=== PATIENT | male | born 2005 | race Caucasian/White ===

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

== ENCOUNTER 2023-04-14 15:21 | Observation (INO) | payer OTHER, SELFPAY ==
--- NOTE | ~2023-04-14 | XR_ITS ---
XR abdomen/kub 1V 04/16/2023 08:59 Indication: Fecal impaction Procedure: KUB Comparison: Comparison to multiple prior studies sequentially, with oldest reviewed study dated 11/2021. Findings: Persistent fecal impaction of the distal colon and rectum, although improved compared with 04/15/2023 and 02/28/2022. No significant small bowel dilation. No abnormal calcifications. No acute o sseous abnormality. Impression: 1: Improved fecal impaction of the distal colon and rectum. Reviewed, dictated and finalized at location B. Impression: 1: Improved fecal impaction of the distal colon and rectum.
--- NOTE | ~2023-04-14 | XR_ITS ---
Supine and upright views of the abdomen Clinical history: Fecal impaction Findings: Large amount of stool present the rectum/distal sigmoid colon. No evidence for obstruction or free air. No abnormal mass lesion or calcification is seen. Osseous structures are intact. Impression: Very large amount of stool at the rectum/distal sigmoid colon, similar to prior exam. Findings are co nsistent with fecal impaction. Reviewed, dictated and finalized at location . Impression: Very large amount of stool at the rectum/distal sigmoid colon, similar to prior exam. Findings are consistent with fecal impaction.
--- NOTE | ~2023-04-14 | XR_ITS ---
XR abdomen/kub 1V 04/15/2023 10:20 INDICATION: Fecal impaction TECHNIQUE: KUB COMPARISON: 02/28/2022 FINDINGS: Bowel gas pattern is normal. There is fecal impaction of the left colon and rectum. There i s no evidence of free air, mass, organomegaly, ascites or obstruction. No abnormal calculi are seen. The bones appear intact. IMPRESSION: 1: Fecal impaction of the left colon and rectum.. Reviewed, dictated and finalized at location A.
--- NOTE | ~2023-04-14 | CT_ITS ---
EXAMINATION: CT abdomen pelvis w con DATE: 04/14/2023 17:09 INDICATION: abdominal pain, constipation TECHNIQUE: Computed tomography (CT) of the abdomen and pelvis was performed with 100 mL Omnipaque-350 intravenous contrast. Automated exposure control and iterative reconstruction technique were employe d. The dose-length product was 249.93 mGy-cm. COMPARISON: 02/28/2022. FINDINGS: Lower thorax: Unremarkable Liver: Normal. Biliary/Gallbladder: Gallbladder is normal. No bile duct dilation. Pancreas: No mass or duct dilation. Spleen: Normal. Adrenals:No mass. Kidneys: No suspicious mass, obstructing stone, or hydronephrosis. GI tract: The descending colon and rectum are markedly dilated by formed stool, measuring up to 13 cm . There is associated wall thickening and mild pericolonic inflammatory change. No small bowel dilati on. Normal appendix. Mesentery/Peritoneum: No ascites, mass, or free air. Retroperitoneum: No mass. Pelvis: Pelvic organs are within normal limits. Rightward displacement of the urinary bladder by the distended colon and rectum. Soft Tissues: Soft tissues and body wall unremarkable. Bones: No acute osseous finding. IMPRESSION: Severe fecal impaction and massive volume of colonic stool, with findings concerning for early sterco ral colitis. Reviewed, dictated and finalized at location K. IMPRESSION: Severe fecal impaction and massive volume of colonic stool, with findings rajeev rning for early stercoral colitis.
[2023-04-14 15:22] VITALS: BP 136/92; PULSE 98; RESP 18; TEMP 36.1; O2SAT 100
--- NOTE | 2023-04-14 15:39 | ED.ABDPAIN ---
HPI - Abdominal Pain General Chief Complaint: Abdominal Pain Stated Complaint: abd pain/constipation Time Seen by Provider: 04/14/23 15:34 History of Present Illness HPI narrative: Patient is a 17-year-old male with history of constipation since childhood here with abdominal pain and constipation. He states that he has not had a good large bowel movement for about 2 weeks, last very small formed stool was approximately 1 week ago. He states he has tried a dose of MiraLax daily as well as Colace, 3 rectal suppositories, to home enemas without any improvement of symptoms. He notes he still passes flatulence but only a small amount. No prior abdominal surgeries. His last visit last year for similar he notes was much worse at that time. He was referred to GI but did not follow up. He Is supposed to be taking daily MiraLax but none recently has been quite busy and feeling well so he was not taking it daily he is supposed to. He does not he has had some decreased p.o. intake as well as decreased urinary output. He believes his last urination occurred yesterday. No fever or chills. Related Data Allergies Allergy/AdvReac Type Severity Reaction Status Date / Time No Known Allergies Allergy Verified 04/14/23 15:36 Review of Systems Review of Systems: All systems reviewed & are unremarkable except as noted in HPI and below Exam Narrative: GENERAL: Well-appearing, well-nourished, and in no acute distress. HEAD: Normocephalic, atraumatic. EYES: PERRLA and EOMI. ENT: Nares clear. Mucous membranes moist. NECK: Supple. CHEST: Clear to auscultation. No respiratory distress. HEART: Regular rate and rhythm. Normal peripheral pulses. ABDOMEN: Soft, Diffusely tender, no rebound or guarding. nondistended. EXTREMITIES: Normal range of motion. No edema. SKIN: Warm, dry, no rash. NEURO: No focal deficits. Alert and oriented x3. PSYCH: Normal mood and affect. Course Course Emergency Course: Chart review performed. Patient here with abdominal pain x2 weeks with constipation. Triage vitals normal. He was seen on 02/28/22 for constipation. Patient seen and evaluated, in no acute distress however does appear to be uncomfortable. Will do lab work, CT abdomen pelvis and anticipate he will likely require an enema here in the emergency department. Morphine and Zofran ordered for symptoms as well as IV fluids. He does have a ride home should he be discharged. CT shows severe fecal impaction and massive volume of colonic stool with findings concerning for early stercoral colitis. Will discuss case with general surgery drilling field professional. I did discuss the case with Dr. Caal, will do attempt at disimpaction and enema here in the ED. I discussed possible contrast enema with radiology, no radiologist in house right now. If needed this could be scheduled for the morning. Will do trial of soap suds, discussed with patient, he is agreeable. Disimpaction attempt with nurse at bedside, stool is so high up that I can hardly scrape it with the tip of my finger. Firm, unable to pull any stool out. Soap suds enema placed. Patient had no success with bowel movement after enema. Patient agreeable to admission. Golytely ordered. Barium enema xray ordered. Spoke with Dr. Dowell, accepts for admission. Vital Signs Vital signs: Vital Signs Temperature 97.0 F L 04/14/23 15:22 Pulse Rate 98 04/14/23 15:22 Respiratory Rate 18 04/14/23 15:22 Blood Pressure 136/92 H 04/14/23 15:22 Pulse Oximetry 100 04/14/23 15:22 Oxygen Delivery Room Air 04/14/23 15:22 Temperature 97.0 F L 04/14/23 15:22 Pulse Rate 98 04/14/23 15:22 Respiratory Rate 18 04/14/23 15:22 Blood Pressure 136/92 H 04/14/23 15:22 Pulse Oximetry 100 04/14/23 15:22 Oxygen Delivery Room Air 04/14/23 15:22 MDM - Abdominal Pain Lab Data 04/14/23 16:11 04/14/23 16:11 Labs: Lab Results 04/14/23 Range/Units 16:11 WBC 8.6
[2023-04-14 16:16] LABS: Basophils Percent Auto 0.5 % (0.2-1.2); Eosinophils Absolute Auto 0.1 K/mm3 (0-0.3); Eosinophils Percent Auto 0.6 % (0-4.4); Hematocrit 43.9 % (42.0-52.0); Immature Granulocyte Absolute 0.01 K/mm3 (0.00-0.031); Immature Granulocyte Percent A 0.1 % (0-0.5); Lymphocytes Absolute Auto 1.32 K/mm3 (0.9-3.2); Lymphocytes Percent Auto 15.3 % (18.3-44.2); Mean Corpuscular HGB Conc 34.2 g/dl (32-36); Mean Corpuscular Hemoglobin 30.5 pg (26-34); Mean Corpuscular Volume 89.2 fl (80-100); Mean Platelet Volume 9.9 fl (7.4-10.4); Monocytes Absolute Auto 0.6 K/mm3 (0.1-0.6); Monocytes Percent Auto 7.1 % (2.6-8.5); Neutrophils Absolute Auto 6.6 K/mm3 (1.3-6.7); Neutrophils Percent Auto 76.4 % (45.5-73.1); Platelet Count Result 320 k/mm3 (150-375); Red Blood Count 4.92 M/mm3 (4.6-6.20); Red Cell Distribution Width 12.3 % (11.5-14.5); White Blood Count 8.6 K/mm3 (4.5-10.0)
[2023-04-14 16:26] LABS: Alanine Aminotransferase 16 U/L (6-50); Albumin Level 5.2 g/dL (3.7-5.6); Alkaline Phosphatase 79 U/L (58-237); Anion Gap 11 mmol/L (8-16); Aspartate Amino Transferase 25 U/L (17-59); Bilirubin,Total 1.2 mg/dL (0.2-1.3); Blood Urea Nitrogen 10 mg/dL (8-21); Calcium 9.9 mg/dL (8.9-10.7); Carbon Dioxide 24 mmol/L (22-30); Chloride 105 mmol/L (98-107); Estimated CRCL calculation 118 ml/min; Estimated Glomerular Filt Rate > 60; Glucose 93 mg/dL (65-110); Lactic Acid Reflex 1.3 mmol/L (0.7-2.0); Lipase 79 U/L (23-300); Potassium 3.7 mmol/L (3.4-5.0); Sodium 140 mmol/L (134-143)
[2023-04-14] MEDS: SODIUM CHLORIDE 0.9% IV 1,000 ML 999 ML IV CONT (16:29)
[2023-04-14] MEDS: MORPHINE SULFATE (*CRX) 4 MG/ML INJ IV PUSH (16:30)
[2023-04-14] MEDS: ONDANSETRON INJ 4 MG/2 ML VIAL IV PUSH (16:30)
--- NOTE | 2023-04-14 20:54 | PM.IMHP ---
H&P: HPI History of Present Illness Date/Time: 04/14/23 20:54 Chief Complaint: constipation Narrative: This is a 17 year old With a past history of constipation. The patient stated that he is supposed to take a daily stool softener but does not. The patient does not have a regular bowel regimen. He stated that he has not had a normal bowel movement in 2 weeks. last very small formed stool was approximately 1 week ago.? He states he has tried a dose of MiraLax daily as well as Colace, 3 rectal suppositories, to home enemas without any improvement of symptoms.? He notes he still passes flatulence but only a small amount.? No prior abdominal surgeries.? His last visit last year for similar he notes was much worse at that time. He was referred to GI but did not follow up. He ? Is supposed to be taking daily MiraLax but none recently has been quite busy and feeling well so he was not taking it daily he is supposed to.? He does not he has had some decreased p.o. intake as well as decreased urinary output.? He believes his last urination occurred yesterday. No fever or chills. He also stated that he had this similar problem when he was 12. He stated that he had a barium enemia at that time. This did resolve that issue at that time. GI has been consulted. patient was given IV fluids morphine ,Zofran ,and soapsuds enema in the emergency room. The patient still has not had a bowel movement. CT of the pelvis and abdomen. Severe fecal impaction and massive volume of colonic stool, with findings concerning for early stercoral colitis. Patient is being admitted to observation status on the date of service of 04/14/2023 Review of Systems Review of Systems: All systems reviewed & are unremarkable except as noted in HPI and below Constitutional: Constitutional: Reports as per HPI and Reports no additional constitutional complaints Eyes: Eyes: Reports as per HPI and Reports no additional eye complaints ENT: Reports system reviewed and no additional complaints, except as documented and Reports Normal hearing present Cardiovascular: Cardiovascular: Reports no additional cardiovascular complaints Respiratory: Respiratory: Reports no additional respiratory complaints and Reports no additional respiratory complaints Gastrointestinal: Gastrointestinal: Reports as per HPI Musculoskeletal: Musculoskeletal: Reports no additional musculoskeletal complaints Integumentary/Breasts: Skin/Breast: Reports system reviewed and no additional complaints, except as docu and Reports as per HPI Neurologic: Reports system reviewed and no additional complaints, except as documented, Reports as per HPI and Reports Normal hearing present Psychiatric: Psychiatric: Reports no additional psychiatric complaints and Reports as per HPI Endocrine: Endocrine: Reports no additional endocrine complaints Hematologic/Lymphatic: Hematologic/Lymphatic: Reports no additional hematologic/lymphatic complaints Allergic/Immunologic: Allergic/Immunologic: Reports no additional allergic/immunologic complaints PMFSH Surgical History Surgical History No history of previous surgery Family History Family History Sibling Bipolar 1 disorder Social History Social History (Updated 04/14/23 @ 23:30 by Whit Rivera NP) Social History: He is single lives with parents and works at [employer]. he vapes daily and uses marijuana. Smoking status: Current every day smoker Tobacco type: e-cigarettes/vaping Alcohol intake: never Substance use: current Substance use type: marijuana Other substance usage details: weekly Lack of Transportation: No Lack of Food: Never True Current Housing: I Have Housing Concerned About Future Housing: No Difficulty Paying Gas/Electric Bills: No Difficulty Paying for Meds: No Currently Unemployed: No Education:
[2023-04-14 21:19] VITALS: BP 124/83; PULSE 101; RESP 16; O2SAT 98
[2023-04-14] MEDS: PEG (High)/E-LYTE SOLN 4,000 ML BTL 4000 ML PO (21:38)
--- NOTE | 2023-04-14 22:17 | ADMGEN ---
This patient, Jabier Sharma, was admitted to 2 Medical Room 249-01. Patient/family oriented to hospital policies and general routines including ID bracelet, bed and alarms, visiting hours, pain management, procedures, bathroom and other care routines, personal items, smoking policy, room service/diet, and visiting hours. Information on how to activate the Rapid Response Team has been discussed. Patient/Family are encouraged to report perceived risks to care and to ask questions if they do not understand what they are told or what they should do.
[2023-04-14 22:34] VITALS: BMI 21.4
[2023-04-14 22:37] VITALS: BP 132/82; PULSE 90; RESP 16; TEMP 36.6; O2SAT 99
[2023-04-14] MEDS: LACTULOSE ENEMA 200 GM/1,000 ML ENEMA RECTAL (23:24)
[2023-04-14] MEDS: DOCUSATE SODIUM 100 MG CAPSULE PO (23:24)
[2023-04-14] MEDS: polyethylene glycoL 3350 238 GM BOTTLE PO (23:45)
[2023-04-15] MEDS: SODIUM CHLORIDE 0.9% IV 1,000 ML 100 ML IV CONT ×2 (03:12→17:39)
[2023-04-15 05:29] LABS: Basophils Percent Auto 0.6 % (0.2-1.2); Eosinophils Absolute Auto 0.1 K/mm3 (0-0.3); Eosinophils Percent Auto 1.4 % (0-4.4); Hemoglobin 13.4 g/dL (14.0-18.0); Immature Granulocyte Absolute 0.02 K/mm3 (0.00-0.031); Immature Granulocyte Percent A 0.3 % (0-0.5); Lymphocytes Percent Auto 27.6 % (18.3-44.2); Mean Corpuscular HGB Conc 32.7 g/dl (32-36); Mean Corpuscular Hemoglobin 30.2 pg (26-34); Mean Corpuscular Volume 92.3 fl (80-100); Mean Platelet Volume 10.1 fl (7.4-10.4); Monocytes Absolute Auto 0.7 K/mm3 (0.1-0.6); Monocytes Percent Auto 10.1 % (2.6-8.5); Neutrophils Absolute Auto 3.9 K/mm3 (1.3-6.7); Platelet Count Result 301 k/mm3 (150-375); Red Blood Count 4.44 M/mm3 (4.6-6.20); Red Cell Distribution Width 12.2 % (11.5-14.5); White Blood Count 6.5 K/mm3 (4.5-10.0)
[2023-04-15 05:38] VITALS: BP 120/73; PULSE 87; RESP 16; TEMP 36.6; O2SAT 98
[2023-04-15 05:46] LABS: Lactic Acid Reflex 0.6 mmol/L (0.7-2.0)
[2023-04-15 05:47] LABS: Alanine Aminotransferase 12 U/L (6-50); Albumin Level 4.6 g/dL (3.7-5.6); Alkaline Phosphatase 69 U/L (58-237); Anion Gap 11 mmol/L (8-16); Aspartate Amino Transferase 22 U/L (17-59); Bilirubin,Total 1.1 mg/dL (0.2-1.3); Blood Urea Nitrogen 8 mg/dL (8-21); Calcium 9.2 mg/dL (8.9-10.7); Carbon Dioxide 24 mmol/L (22-30); Chloride 103 mmol/L (98-107); Estimated CRCL calculation 124 ml/min; Estimated Glomerular Filt Rate > 60; Glucose 89 mg/dL (65-110); Potassium 3.8 mmol/L (3.4-5.0); Sodium 138 mmol/L (134-143)
--- NOTE | 2023-04-15 08:18 | PM.IMPN ---
Progress Note: A&P Assessment and Plan (1) Fecal impaction in rectum: Code(s): K56.41 - Fecal impaction Status: Acute Assessment and Plan: 04/14/23:(copied from chart) GI has been consulted. The patient had a soapsuds enema without any relief in the emergency room. See CT scan of the abdomen and pelvis.Severe fecal impaction and massive volume of colonic stool, with findings concerning for early stercoral colitis. MiraLax has been ordered as well as lactulose enema. Daily Colace. GoLYTELY has been ordered. 04/15/23: GI continues to follow patient KUB today showing fecal impaction of the left colon and rectum patient will get Mag citrate and soapsuds enema today, will start Dulcolax tomorrow repeat KUB in the morning patient reports a few bowel movements today, he is passing gas, pain is well controlled (2) Urinary retention: Code(s): R33.9 - Retention of urine, unspecified Status: Acute Assessment and Plan: 04/15/2023: patient called out today unable to urinate. Bladder scan shown greater than 700 mls in his bladder, order for a straight cath placed, patient had a 1000 male are greater out his bladder on straight cath. If he continues to have urinary retention Through today and tonight there, I placed an order to place Sullivan catheter. Currently patient does not want a catheter so we will monitor for this closely. Time Spent With Patient Time with patient: Greater than 35 minutes Subjective Date/time seen: 04/15/23 08:18 Interval history: 04/15/23: Interval history: This is a 17-year-old male who presented to the emergency room on 04/14/2023 with complaints of constipation. He stated at that time he has not had a bowel movement in 2 weeks. he tried multiple doses of MiraLax, Colace, suppositories, and enemas at home with no improvement in his symptoms. He has had no prior abdominal surgeries, however reports history of constipation. Workup in the hospital included a CT of the abdomen pelvis with contrast which showed severe fecal impaction and massive volume of colonic stool, with findings concerning for early stercoral colitis. GI was consulted. On examination today patient alert and oriented x4 sitting in bed hunched over almost in a guarding position. Vial signs have been stable, patient has been afebrile, he is currently on room air. his only complaint currently is that he unable to pee. A bladder scan was ordered which noted 700 ml of urine in his bladder and he is rather uncomfortable with that. Order placed for a straight cath with the results of over a 1000 mL out of his bladder. Patient hesitant about having a Sullivan catheter however he continues to retain I will have a standing order ready for placement of a Sullivan catheter. Labs today revealed a white blood cell count of 6.5, hemoglobin 13.4, hematocrit 41.0, sodium 138, potassium 3.9, Mag 2.0, BUN 8, creatinine 0.7, TSH 1.390, lactic acid 0.6, liver enzymes were normal, blood sugars ranging 89-93. GI seen the patient today and ordered a KUB which revealed fecal impaction of the left colon and rectum. He was ordered Mag citrate and a soapsuds enema. He will be started on Ducolax tomorrow and have another KUB. Patient has been having frequent bowel movements since the start of his medication. We will reassess tomorrow. Review of Systems Review of Systems: All systems reviewed & are unremarkable except as noted in HPI and below Constitutional: Constitutional: Reports as per HPI and Reports no additional constitutional complaints Eyes: Eyes: Reports as per HPI and Reports no additional eye complaints ENT: Reports system reviewed and no additional complaints, except as documented and Reports as per HPI Cardiovascular: Cardiovascular: Reports as per HPI and Reports no additional cardiovascular complaints Respiratory: Respiratory: Reports as per HPI and Reports no additional respiratory complaints Gastroint
--- NOTE | 2023-04-15 09:38 | WPDGICN ---
Assessment and Plan Assessment and plan (1) Fecal impaction in rectum: Code(s): K56.41 - Fecal impaction Status: Acute Assessment and Plan: Patient with apparent fecal impaction. Plan for soapsuds intervals at intervals until he is cleansed. Agree with MiraLax daily. We will give him do a lax as well for the Stimulan action. Suggest routine therapy with laxative such as MiraLax after discharge. Lower GI enema was ordered by primary care service. This been changed to a Gastrografin water-soluble enema that can be accomplished tomorrow if necessary. Perhaps an outpatient colonoscopy may be necessary after discharge. I suspect this is idiopathic in nature but further evaluation with elective colonoscopy may be prudent. Compliance with medications strongly encouraged to the patient at this time. (2) Constipation: Code(s): K59.00 - Constipation, unspecified Status: Acute Assessment and Plan: Patient appears to have chronic constipation. Suspect this is chronic idiopathic constipation , lab results reviewed today to appear unremarkable. GI Consult Note Consult date/time: 04/15/23 09:38 Reason for consult: Constipation and fecal impaction HPI: Jabier Sharma is a 17 year old male I am asked to see at the request of the hospitalist service because of fecal impaction and constipation. Patient gives a history of lifelong constipation. Typically he was advised to take MiraLax 17g p.o. daily. However he reports he has not taken this for more than a month. ?? because he forgets?. Patient states he began to become some uncomfortable yesterday. He went to the emergency room. CT scan imaging reveals a large amount of stool in the colon a question of stercoral colitis and he was admitted to the hospital. Overnight he was given enema and GoLYTELY. He has produced some stool this morning. He does not feel complete evacuation as of yet. Patient denies any bleeding or weight loss. Patient was advised follow-up with GI service but is not yet done so as an outpatient. Family history is noncontributory. Review of Systems Review of Systems: Review of systems noncontributory. [facility] Surgical History Surgical History No history of previous surgery Family History Family History Sibling Bipolar 1 disorder Social History Social History (Updated 04/14/23 @ 23:30 by Whit Rivera NP) Social History: He is single lives with parents and works at [email or web address]. he vapes daily and uses marijuana. Smoking status: Current every day smoker Tobacco type: e-cigarettes/vaping Alcohol intake: never Substance use: current Substance use type: marijuana Other substance usage details: weekly Lack of Transportation: No Lack of Food: Never True Current Housing: I Have Housing Concerned About Future Housing: No Difficulty Paying Gas/Electric Bills: No Difficulty Paying for Meds: No Currently Unemployed: No Education: High School Diploma/GED Difficulty w/ Childcare or Family Care: No Spiritual care concerns: No Meds Home Medications and Allergies Home Medications Medication Instructions Recorded Confirmed Type No Home Medications 04/14/23 04/14/23 History Allergies Allergy/AdvReac Type Severity Reaction Status Date / Time No Known Allergies Allergy Verified 04/14/23 15:36 Vital Signs Vital Signs - 24 hr 04/14/23 15:22 04/14/23 21:19 04/14/23 22:37 Temperature 97.0 F L 97.9 F Pulse Rate 98 101 H 90 Respiratory Rate 18 16 16 Blood Pressure 136/92 H 124/83 132/82 Pulse Oximetry 100 98 99 Oxygen Delivery Room Air 04/15/23 05:38 Temperature 97.8 F Pulse Rate 87 Respiratory Rate 16 Blood Pressure 120/73 Pulse Oximetry 98 Oxygen Delivery Exam Narrative: Physical exam reveals patient to be alert. Vital signs sta
[2023-04-15] MEDS: MAGNESIUM CITRATE 300 ML BTL PO (10:33)
[2023-04-15] MEDS: DOCUSATE SODIUM 100 MG CAPSULE PO ×2 (10:34→20:24)
[2023-04-15 14:35] VITALS: BP 139/94; PULSE 111; RESP 20; TEMP 36.5; O2SAT 100
[2023-04-15 17:33] LABS: Appearance Urine Clear (Clear); Bilirubin Urine Negative (Negative); Blood Urine Negative (Negative); Color Urine Yellow (Yellow); Glucose Urine UA Negative (Negative); Ketones Urine 1+ mg/dL (Negative); Leukocyte Esterase Ur Negative LEU/UL (Negative); Nitrate Urine Negative (Negative); Protein Urine Negative (Negative); Specific Grav Ur 1.013 (1.001-1.035); pH Urine 8.5 (5.0-9.0)
[2023-04-15 17:37] LABS: Add Urine Microscopic? NO
[2023-04-15] MEDS: KETOROLAC 15 MG/ML VIAL (*BKC) IV PUSH (18:59)
[2023-04-15 19:49] VITALS: BP 119/72; PULSE 94; RESP 18; TEMP 36.8; O2SAT 99
[2023-04-16] MEDS: SODIUM CHLORIDE 0.9% IV 1,000 ML 100 ML IV CONT (03:40)
[2023-04-16 05:27] LABS: Hemoglobin 13.5 g/dL (14.0-18.0); Mean Corpuscular HGB Conc 32.1 g/dl (32-36); Mean Corpuscular Hemoglobin 30.1 pg (26-34); Mean Corpuscular Volume 93.8 fl (80-100); Mean Platelet Volume 9.8 fl (7.4-10.4); Platelet Count Result 284 k/mm3 (150-375); Red Blood Count 4.48 M/mm3 (4.6-6.20); Red Cell Distribution Width 12.2 % (11.5-14.5); White Blood Count 4.8 K/mm3 (4.5-10.0)
[2023-04-16 06:00] VITALS: BP 109/60; PULSE 148; RESP 18; TEMP 36.4; O2SAT 100
[2023-04-16] MEDS: BISACODYL 5 MG TABLET EC PO (08:59)
[2023-04-16] MEDS: DOCUSATE SODIUM 100 MG CAPSULE PO ×2 (08:59→20:54)
[2023-04-16 09:00] VITALS: RESP 18; O2SAT 100
[2023-04-16 09:24] VITALS: BP 115/69; PULSE 62; RESP 18; O2SAT 100
--- NOTE | 2023-04-16 09:59 | PM.IMPN ---
Progress Note: A&P Assessment and Plan (1) Fecal impaction in rectum: Code(s): K56.41 - Fecal impaction Status: Acute Assessment and Plan: 04/14/23:(copied from chart) GI has been consulted. The patient had a soapsuds enema without any relief in the emergency room. See CT scan of the abdomen and pelvis.Severe fecal impaction and massive volume of colonic stool, with findings concerning for early stercoral colitis. MiraLax has been ordered as well as lactulose enema. Daily Colace. GoLYTELY has been ordered. 04/15/23: GI continues to follow patient KUB today showing fecal impaction of the left colon and rectum patient will get Mag citrate and soapsuds enema today, will start Dulcolax tomorrow repeat KUB in the morning patient reports a few bowel movements today, he is passing gas, pain is well controlled 04/16/23: GI following patient, will await further recommendations KUB today shown improved fecal impaction of the distal colon and rectum Continue with bowel regimen Patient has had some bowel movements today Patient still has poor intake of oral fluids and food, he has only been taking and clears today. I will leave it up to GI team if we can go ahead and advance his diet today. Endorses 1 episode of nausea and vomiting this morning, he describes it as bilious, he did not require any medication and is feeling better at this point. Encouraged ambulation (2) Urinary retention: Code(s): R33.9 - Retention of urine, unspecified Status: Acute Assessment and Plan: 04/15/2023: patient called out today unable to urinate. Bladder scan shown greater than 700 mls in his bladder, order for a straight cath placed, patient had a 1000 male are greater out his bladder on straight cath. If he continues to have urinary retention Through today and tonight there, I placed an order to place Sullivan catheter. Currently patient does not want a catheter so we will monitor for this closely. 04/16/23: Patient able to void without difficulty. They did not need to put in a Sullivan catheter in overnight. Resolved Time Spent With Patient Time with patient: 25 - 35 minutes Subjective Date/time seen: 04/16/23 09:59 Interval history: 04/15/23: Interval history: This is a 17-year-old male who presented to the emergency room on 04/14/2023 with complaints of constipation. He stated at that time he has not had a bowel movement in 2 weeks. he tried multiple doses of MiraLax, Colace, suppositories, and enemas at home with no improvement in his symptoms. He has had no prior abdominal surgeries, however reports history of constipation. Workup in the hospital included a CT of the abdomen pelvis with contrast which showed severe fecal impaction and massive volume of colonic stool, with findings concerning for early stercoral colitis. GI was consulted. On examination today patient alert and oriented x4 sitting in bed hunched over almost in a guarding position. Vial signs have been stable, patient has been afebrile, he is currently on room air. his only complaint currently is that he unable to pee. A bladder scan was ordered which noted 700 ml of urine in his bladder and he is rather uncomfortable with that. Order placed for a straight cath with the results of over a 1000 mL out of his bladder. Patient hesitant about having a Sullivan catheter however he continues to retain I will have a standing order ready for placement of a Sullivan catheter. Labs today revealed a white blood cell count of 6.5, hemoglobin 13.4, hematocrit 41.0, sodium 138, potassium 3.9, Mag 2.0, BUN 8, creatinine 0.7, TSH 1.390, lactic acid 0.6, liver enzymes were normal, blood sugars ranging 89-93. GI seen the patient today and ordered a KUB which revealed fecal impaction of the left colon and rectum. He was ordered Mag citrate and a soapsuds enema. He will be started on Ducolax tomorrow and have another KUB. Patient has been having fr
--- NOTE | 2023-04-16 12:46 | WPDGIPROGNO ---
Progress Note: A&P Assessment and Plan (1) Constipation: Code(s): K59.00 - Constipation, unspecified Status: Acute Assessment and Plan: Patient with chronic constipation. He appears to have become impacted when he discontinued his daily use of MiraLax. Suggest restarting MiraLax on a daily basis. Because of x-ray today showing residual stool suggested bottle of magnesium citrate. Increase activity. He may benefit from high-fiber diet. May be beneficial to consider elective outpatient colonoscopy at a later date. (2) Fecal impaction in rectum: Code(s): K56.41 - Fecal impaction Status: Acute Assessment and Plan: Impaction appears resolved by history. Obstructive series suggest there may be some residual stool. Agree with a bottle of magnesium citrate and implementing daily use of MiraLax. Discharge when okay with primary care service. Subjective Date/time seen: 04/16/23 12:46 Interval history: Patient alert comfortable this morning. Had large bowel movement. Feels much relieved. Abdomen soft nontender. Patient denies abdominal pain. Tolerating liquid diet without difficulty. Review of Systems Review of Systems: Review of systems noncontributory. Exam Narrative: Physical exam reveals patient to be alert. Vital signs stable. HEENT exam reveals no icterus. Lungs are clear. Heart without murmur. Abdomen bowel sounds are present soft nontender with no organomegaly. Objective Data Vital Signs Vital Signs: Vital Signs - 24 hr 04/15/23 14:35 04/15/23 19:49 04/15/23 20:00 Temperature 97.7 F 98.3 F Pulse Rate 111 H 94 Respiratory Rate 20 18 Blood Pressure 139/94 H 119/72 Pulse Oximetry 100 99 Oxygen Delivery Room Air 04/16/23 06:00 04/16/23 09:00 04/16/23 09:24 Temperature 97.5 F L Pulse Rate 148 H 62 Respiratory Rate 18 18 18 Blood Pressure 109/60 115/69 Pulse Oximetry 100 100 100 Oxygen Delivery Room Air Intake/Output Intake/Output: Intake & Output 04/13/23 04/14/23 04/15/23 04/16/23 23:59 23:59 23:59 23:59 Intake Total 1000 1240 1766 Output Total 1400 Balance 1000 -160 1766 Meds/Results Medications: Active Medications Generic Name Dose Route Start Last Admin Trade Name Freq PRN Reason Stop Dose Admin Acetaminophen 650 mg 10/22/23 18:49 Acetaminophen 325 Mg Tablet PO Q4H PRN Mild Pain (1-3) or Fever Bisacodyl 5 mg 04/16/23 09:00 04/16/23 08:59 Bisacodyl 5 Mg Tablet Ec PO 5 mg QAM [facility] Administration Docusate Sodium 100 mg 04/14/23 22:40 04/16/23 08:59 Docusate Sodium 100 Mg Capsule PO 100 mg Q12HR [facility] Administration Ketorolac Tromethamine 15 mg 04/15/23 18:47 04/15/23 18:59 Ketorolac 15 Mg/Ml Vial (*Bkc) IV PUSH 15 mg Q6H PRN Administration Pain Ondansetron HCl 4 mg 04/14/23 23:44 Ondansetron Inj 4 Mg/2 Ml Vial IV PUSH Q4H PRN Nausea And Vomiting Polyethylene Glycol 17 gm 04/17/23 09:00 Polyethylene Glycol 3350 17 Gm Powd.[facility] Results: ITS Impressions Abdomen/Pelvis CT 04/14/23 17:09 IMPRESSION: Severe fecal impaction and massive volume of colonic stool, with findings concerning for early stercoral colitis. Abdomen X-Ray 04/16/23 09:07 Impression: 1: Improved fecal impaction of the distal colon and rectum. Labs Labs: Laboratory Results - last 24 hr 04/15/23 04/16/23 17:04 05:14 WBC 4.8 RBC 4.48 L Hgb 13.5 L Hct 42.0 MCV 93.8 MCH 30.1 MCHC 32.1 RDW 12.2 Plt Count 284 MPV 9.8 Urine Color Yellow Urine Appearance Clear Urine pH 8.5 Ur Specific Winfred 1.013 Urine Protein Negative Urine Glucose (UA) Negative Urine Ketones 1+ H Ur Blood (Man) Negative Urine Nitrate Negative Urine Bilirubin Negative Urine Urobilinogen 1.0 Leukocyte Esterase Rfl Negative Amg Follow-up Billing Hospital [facility]up [facility]
[2023-04-16 14:46] VITALS: BP 115/65; PULSE 84; RESP 18; TEMP 36.7; O2SAT 99
[2023-04-16 17:08] LABS: Anion Gap 13 mmol/L (8-16); Blood Urea Nitrogen 6 mg/dL (8-21); Calcium 9.6 mg/dL (8.9-10.7); Carbon Dioxide 22 mmol/L (22-30); Chloride 105 mmol/L (98-107); Estimated CRCL calculation 143 ml/min; Estimated Glomerular Filt Rate > 60; Glucose 90 mg/dL (65-110); Sodium 140 mmol/L (134-143)
[2023-04-16] MEDS: MAGNESIUM CITRATE 300 ML BTL PO (17:33)
[2023-04-16 19:42] VITALS: BP 114/72; PULSE 70; RESP 16; TEMP 36.6; O2SAT 99
[2023-04-17 06:56] VITALS: BP 106/66; PULSE 60; RESP 14; TEMP 36.6; O2SAT 98
[2023-04-17 08:24] VITALS: RESP 16; O2SAT 98
[2023-04-17] MEDS: DOCUSATE SODIUM 100 MG CAPSULE PO (08:29)
[2023-04-17] MEDS: polyethylene glycoL 3350 17 GM POWD.PACK PO (08:29)
[2023-04-17] MEDS: BISACODYL 5 MG TABLET EC PO (08:29)
--- NOTE | 2023-04-17 08:41 | PM.DS ---
DS: Admitting Diagnosis Discharge Date 04/17/23 Admitting Diagnosis Acute fecal impaction in rectum DS: Discharge Diagnosis Discharge Diagnosis (1) Fecal impaction in rectum: Code(s): K56.41 - Fecal impaction Status: Acute DS: Summary Hospital Course Reason for hospitalization: Acute fecal impaction in rectum Hospital Course: This is a 17 year old male who presented to the hospital with Complains of constipation on 04/14/2023. He states at that time that he had not had a bowel movement in 2 weeks. He tried multiple doses of MiraLax, Colace, suppositories, and enemas at home with no improvement in his symptoms. Hospital work up included a CT of the abdomen pelvis with contrast which showed severe fecal impaction and massive volume of colonic stool, with findings concerning for early stercoral colitis. GI was consulted And recommended a KUB which revealed fecal impaction of the left colon and rectum. He was given a dose of Mag citrate and a soapsuds enema. He has had multiple bowel movements the last few days. His repeat KUB showed some improvement however there was still quite a bit of stool burden. Spoke with Dr. Bhagat today about today's KUB showing quite a bit of stool burden. He recommends to have him still discharge to home, continue his MiraLax daily, continue taking Colace, and take another dose of Mag citrate on or Sunday of this week. he can also repeat the Mag citrate next week after Sunday if he is still having symptoms. would like to follow-up with him on an outpatient basis in 2 weeks and may benefit from a colonoscopy considering the complications he has had with constipation. Patient also needs to follow up with the primary care physician he currently has a plateman. I told him it would be fine to follow-up with his plateman if she was still allow however he needs to find an adult physician going forward that can follow him. Labs today were essentially unremarkable. Discussed this plan with the patient and significant other and they are agreeable to this treatment plan. Patient stable for discharge. Status at Discharge Cognitive/behavioral status at discharge: Alert and oriented x4 Functional status at discharge: independent ambulation Overall status at discharge: patient is back to baseline Time Spent with Patient Time attestation: Total time spent providing and/or coordinating discharge services: Time spent: Less than 30 minutes Exam Narrative: GENERAL: Ill-appearing, well-nourished HEAD: Normocephalic, atraumatic. EYES: PERRLA and EOMI. Sclera clear ENT: Mucous membranes moist. NECK: Supple. no JVD, trachea midline CHEST: lungs clear to auscultation, no adventitious lung sounds.? No respiratory distress. HEART: Regular rate and rhythm.? normal S1 and S2. No murmurs, gallops, friction rub. Normal peripheral pulses. ABDOMEN: soft, non- distended abdomen, no rebound or guarding. Reports multiple BM's today and passing gas. Hypoactive bowel sounds, he is passing gas. He is urinating without difficulty today. He did have 1 episode of nausea and vomiting today but this has subsided. EXTREMITIES: Normal range of motion.? No edema. SKIN: Warm, dry, no rash. NEURO: No focal deficits.? Alert and oriented x3. PSYCH: Normal mood and affect. ? DS: Data Data Completed and Pending Labs on day of discharge: Labs from last 24 hours 04/16/23 16:47 Sodium 140 Potassium 4.0 Chloride 105 Carbon Dioxide 22 Anion Gap 13 BUN 6 L Creatinine 0.60 L Estim Creat Clear Calc 143 Estimated GFR > 60 Glucose 90 Calcium 9.6 Procedures/Treatments: Aggressive bowel prep for fecal impaction Discharge Plan Discharge Attending physician on discharge: Beryl Gauthier Consulting providers: Dong Bhagat Discharging Clinician: Shantell Parry Anticipated Discharge Date/Time: 04/17/23 08:47 Patient Disposition: Home, Self-Care Activity:
[2023-04-17 14:07] VITALS: BP 121/76; PULSE 90; RESP 18; TEMP 36.3; O2SAT 100
== END 2023-04-17 17:05 | disposition home or self-care (01) ==
LOC: ANHED 20:37 → ANH2MED 21:32
PROVIDERS: Nurse Practitioner; Nurse Practitioner Acute Care; Admitting Provider Internal Medicine; Emergency Provider Student in an Organized Health Care Education/Training Program; PCP Pediatrics; Visit Provider Student in an Organized Health Care Education/Training Program
DX: K56.41 Fecal impaction (principal); R33.9 Retention of urine, unspecified; F17.290 Nicotine dependence, other tobacco product, uncomplicated; F12.90 Cannabis use, unspecified, uncomplicated; K62.6 Ulcer of anus and rectum; Z96.0 Presence of urogenital implants
CPT/HCPCS: 36415; 74018; 74177; 80048; 80053; 81003; 83605; 83690; 83735; 84443; 85025; 85027; 96360; 96361; 96374; 96375; 99285; A9270; G0378; J1885; J2270; J2405; J7030; Q9967

== ENCOUNTER 2023-05-02 05:31 | Emergency (ER) | payer OTHER, SELFPAY ==
[2023-05-02 05:34] VITALS: BP 140/93; PULSE 86; RESP 20; TEMP 36.4; O2SAT 100
[2023-05-02] MEDS: HYDROmorphone HCL INJ (*CRX) 1 MG/ML SYR 0.5 MG IM (06:10)
--- NOTE | 2023-05-02 06:10 | ED.GENADULT ---
HPI - General Adult General Chief complaint: Urogenital-Male Stated complaint: Urinary retention? Time Seen by Provider: 05/02/23 05:48 History of Present Illness HPI narrative: This is a 17-year-old male with history of constipation urinary retention presenting with 1 day of urinary retention. He has significant abdominal pain and has not been able urinate for 1 day. Patient states that when he becomes fecal impacted he has urinary retention. He has an appointment on May [address] Bhagat for possible colonoscopy assisted disimpaction. Related Data Allergies Allergy/AdvReac Type Severity Reaction Status Date / Time No Known Allergies Allergy Verified 04/14/23 15:36 [facility] Past Medical History Medical History Constipation Fecal impaction in rectum Urinary retention Surgical History Surgical History No history of previous surgery Family History Family History Sibling Bipolar 1 disorder Social History Social History Social History: He is single lives with parents and works at [employer]. he vapes daily and uses marijuana. Smoking status: Current every day smoker Tobacco type: e-cigarettes/vaping Alcohol intake: never Substance use: current Substance use type: marijuana Other substance usage details: weekly Lack of Transportation: No Lack of Food: Never True Current Housing: I Have Housing Concerned About Future Housing: No Difficulty Paying Gas/Electric Bills: No Difficulty Paying for Meds: No Currently Unemployed: No Education: High School Diploma/GED Difficulty w/ Childcare or Family Care: No Spiritual care concerns: No Exam Narrative: APPEARANCE: patient is very uncomfortable Head: atraumatic. EYES: EOMI, NOSE: Atraumatic NECK: Trachea midline RESPIRATORY: No increased rate of breathing CARDIOVASCULAR: RRR, ABDOMINAL: palpable mass in the suprapubic area, rest the abdomen is soft, nontender MUSCULOSKELETAl: No obvious deformities NEURO: Alert. Moving 4/4 extremities SKIN:: Warm, dry. Normal color PSYCHIATRIC: Normal affect Course Vital Signs Vital signs: Vital Signs Temperature 97.6 F 05/02/23 05:34 Pulse Rate 86 05/02/23 05:34 Respiratory Rate 20 05/02/23 05:34 Blood Pressure 140/93 H 05/02/23 05:34 Pulse Oximetry 100 05/02/23 05:34 Oxygen Delivery Room Air 05/02/23 05:34 Temperature 97.6 F 05/02/23 05:34 Pulse Rate 86 05/02/23 05:34 Respiratory Rate 20 05/02/23 05:34 Blood Pressure 140/93 H 05/02/23 05:34 Pulse Oximetry 100 05/02/23 05:34 Oxygen Delivery Room Air 05/02/23 05:34 Medical Decision Making MDM Narrative Medical decision making narrative: -Course: 17-year-old male with history of urinary retention and fecal impaction presenting with urinary retention. A coude catheter was used to drain his bladder with significant relief. On re-evaluation his abdomen is now soft nontender with no guarding or rebound. He declined a Sullivan with leg bag. He said the last time he had urine retention once they drained it the 1st time he was able to urinate without difficulty. He will return if he is unable to urinate. On re-evaluation his abdomen is now soft nontender with no guarding or rebound. The patient says he has not had a bowel movement in several days and he knows that he is impacted but he is still passing gas and having small bowel movements. No N/V. I asked if he wanted to be evaluated or treated for his fecal impaction while here in the emergency department in the declined as he would rather follow up with GI on May 09. -DDX includes but is not limited to: Urinary retention, fecal impaction, constipation -Co-morbidities complicating care: history of urinary ret
[2023-05-02 06:23] LABS: Appearance Urine Clear (Clear); Bilirubin Urine Negative (Negative); Blood Urine Negative (Negative); Color Urine Yellow (Yellow); Glucose Urine UA Negative (Negative); Ketones Urine Negative (Negative); Leukocyte Esterase Ur Negative LEU/UL (Negative); Nitrate Urine Negative (Negative); Protein Urine Negative (Negative); Specific Grav Ur 1.011 (1.001-1.035); Urobilinogen Urine 0.2 mg/dL (<2.0)
--- NOTE | 2023-05-02 06:42 | PC.NURSE ---
Sullivan catheter placed as straight cath. Bladder drained with 1160 ml output. Patient declined a leg bag and states he would like to go home and attempt to urinate on his own. Patient instructed to come back to the ED if unable to urinate at home.
[2023-05-02 06:56] LABS: Add Urine Microscopic? NO
== END 2023-05-02 06:54 | disposition home or self-care (01) ==
PROVIDERS: Emergency Provider Emergency Medicine; PCP Pediatrics
DX: R33.9 Retention of urine, unspecified (principal); K59.00 Constipation, unspecified; F17.290 Nicotine dependence, other tobacco product, uncomplicated
CPT/HCPCS: 81003; 96372; 99283; J1170

== ENCOUNTER 2023-05-02 16:44 | Observation (INO) | payer OTHER, SELFPAY ==
--- NOTE | ~2023-05-02 | XR_ITS ---
EXAMINATION: XR abdomen/kub 1V DATE: 05/02/2023 18:15 INDICATION: Constipation. TECHNIQUE: A supine view of the abdomen on 2 radiographs was obtained. COMPARISON: CT abdomen and pelvis 04/14/2023 FINDINGS: There is a large stool ball in the rectosigmoid with distention of the rectosigmoid. The sm all bowel is normal in caliber. A catheter overlies the bladder. IMPRESSION: 1. Large stool ball in the rectosigmoid with distention of the rectosigmoid. Reviewed, dictated and finalized at location E. EAR UNIT OPERATOR
--- NOTE | ~2023-05-02 | XR_ITS ---
EXAMINATION: XR abdomen/kub 1V INDICATION: Fecal impaction TECHNIQUE: Supine views of the abdomen were obtained on 2 radiographs. COMPARISON: 05/02/2023 FINDINGS: Again seen is a large stool ball of the rectum with persistent distention of the sigmoid co rashad. No free intraperitoneal gas is identified. A catheter overlying the pelvis has been removed. IMPRESSION: 1. Persistent fecal impaction of the rectum with moderate distention of the sigmoid colon. Reviewed, dictated and finalized at location B. AGE GRINDER OPERATOR IMPRESSION: 1. Persistent fecal impaction of the rectum with moderate distention of the sig moid colon.
[2023-05-02 16:48] VITALS: BP 136/86; PULSE 100; RESP 16; TEMP 36.6; O2SAT 100
--- NOTE | 2023-05-02 17:22 | ED.GENADULT ---
HPI - General Adult General Chief complaint: Urogenital-Male Stated complaint: urinary retention Time Seen by Provider: 05/02/23 17:04 Source: patient Mode of arrival: ambulatory Limitations: no limitations History of Present Illness HPI narrative: This is a 17-year-old male with PMH of chronic constipation who presents to the ED with chief complaint of urinary retention for over 24 hours. States he has the urge to urinate but is unable to urinate. Reports this is happened in the past due to constipation/fecal impaction. Reports that he was seen in this ED approximately 0600 and had relief of his complaints of urinary retention with a straight catheter. Reports that this is happened in the past so he just wanted a straight catheter here and to be discharged home. However now he states that he is still having urinary retention and is requesting another catheterization for relief. States he has been taking his laxatives and stool softeners. states that he is having bowel movements with loose stools but feels that they just move around the fecal impaction. Denies fevers, chills, nausea, vomiting, any other urinary complaints. Reports suprapubic abdominal discomfort. Of note states he has a GI appointment on May 09 for colonoscopy assisted fecal disimpaction. He has been seen in this department previously and had unsuccessful manual disimpaction and was admitted. Related Data Home Medications Medication Instructions Recorded Confirmed magnesium citrate 296 ml PO ONCE PRN constipation 05/02/23 05/02/23 Allergies Allergy/AdvReac Type Severity Reaction Status Date / Time No Known Allergies Allergy Verified 05/02/23 17:25 Review of Systems Review of Systems: All systems as dictated in [facility] Past Medical History Medical History Constipation Fecal impaction in rectum Urinary retention Surgical History Surgical History No history of previous surgery Family History Family History Sibling Bipolar 1 disorder Social History Social History Social History: He is single lives with parents and works at [employer]. he vapes daily and uses marijuana. Smoking status: Current every day smoker Tobacco type: e-cigarettes/vaping Alcohol intake: never Substance use: current Substance use type: marijuana Other substance usage details: weekly Lack of Transportation: No Lack of Food: Never True Current Housing: I Have Housing Concerned About Future Housing: No Difficulty Paying Gas/Electric Bills: No Difficulty Paying for Meds: No Currently Unemployed: No Education: High School Diploma/GED Difficulty w/ Childcare or Family Care: No Spiritual care concerns: No Exam Narrative: GENERAL: Well-appearing, well-nourished, and in no acute distress. HEAD: Normocephalic, atraumatic. EYES: PERRLA and EOMI. ENT: Nares clear, no rhinorrhea or epistaxis. Mucous membranes moist. Oropharynx without tonsillar hypertrophy exudate or other lesions. NECK: Supple. No adenopathy or masses. CHEST: No respiratory distress. Clear to auscultation. No wheezes rales or rhonchi HEART: Regular rate and rhythm. No murmur heard. Normal peripheral pulses. ABDOMEN: Soft, nontender, nondistended, normal active bowel sounds. MSK: Normal range of motion. No edema. SKIN: Warm, dry, no rash. NEURO: Alert and oriented x3. No focal deficits. PSYCH: Normal mood and affect. : Bladder scan with nursing staff shows residual volume of 350 mL. Course Course Emergency Course: Declines manual disimpaction or any other interventions such as enema here. Vital Signs Vital signs: Vital Signs Temperature 98 F 05/02/23 16:48 Pulse Rate 100 05/02/23 16:48 Respiratory Rate 16
[2023-05-02 18:27] LABS: Basophils Percent Auto 0.4 % (0.2-1.2); Eosinophils Absolute Auto 0.1 K/mm3 (0-0.3); Eosinophils Percent Auto 0.8 % (0-4.4); Hematocrit 42.6 % (42.0-52.0); Immature Granulocyte Absolute 0.03 K/mm3 (0.00-0.031); Immature Granulocyte Percent A 0.3 % (0-0.5); Lymphocytes Absolute Auto 1.22 K/mm3 (0.9-3.2); Lymphocytes Percent Auto 12.4 % (18.3-44.2); Mean Corpuscular HGB Conc 32.9 g/dl (32-36); Mean Corpuscular Volume 91.4 fl (80-100); Mean Platelet Volume 9.6 fl (7.4-10.4); Monocytes Absolute Auto 0.7 K/mm3 (0.1-0.6); Monocytes Percent Auto 6.6 % (2.6-8.5); Neutrophils Absolute Auto 7.8 K/mm3 (1.3-6.7); Neutrophils Percent Auto 79.5 % (45.5-73.1); Platelet Count Result 359 k/mm3 (150-375); Red Blood Count 4.66 M/mm3 (4.6-6.20); Red Cell Distribution Width 11.9 % (11.5-14.5); White Blood Count 9.8 K/mm3 (4.5-10.0)
[2023-05-02 18:39] LABS: Alanine Aminotransferase 14 U/L (6-50); Albumin Level 4.9 g/dL (3.7-5.6); Alkaline Phosphatase 89 U/L (58-237); Anion Gap 10 mmol/L (8-16); Aspartate Amino Transferase 20 U/L (17-59); Bilirubin,Total 0.6 mg/dL (0.2-1.3); Blood Urea Nitrogen 12 mg/dL (8-21); Calcium 9.8 mg/dL (8.9-10.7); Carbon Dioxide 28 mmol/L (22-30); Chloride 104 mmol/L (98-107); Estimated CRCL calculation 100 ml/min; Estimated Glomerular Filt Rate > 60; Glucose 96 mg/dL (65-110); Potassium 3.9 mmol/L (3.4-5.0); Sodium 142 mmol/L (134-143)
[2023-05-02 18:46] LABS: INR 1.1; Partial Thromboplastin Time 36.4 SECONDS (22.3-36.8); Prothrombin Time 14.6 Seconds (11.1-14.7)
--- NOTE | 2023-05-02 19:08 | PC.NURSE ---
Assumed care of pt from CLAIR French at this time.
[2023-05-02 19:56] VITALS: BP 134/87; PULSE 99; RESP 17; O2SAT 100
[2023-05-02] MEDS: ACETAMINOPHEN 500 MG TABLET 1000 MG PO (20:06)
--- NOTE | 2023-05-02 20:15 | PM.IMHP ---
H&P: HPI History of Present Illness Chief Complaint: Urinary retention Narrative: This is a 17-year-old male with past medical history significant for chronic constipation patient presents to the emergency room due to urinary retention and constipation. Denies any fevers, rigors, chills, nausea, vomiting has been able to keep his per orally intake. Preliminary workup has been significant for CT of abdomen and pelvis was reported as: EXAMINATION: CT abdomen pelvis w con DATE: 04/14/2023 17:09 INDICATION: abdominal pain, constipation TECHNIQUE: Computed tomography (CT) of the abdomen and pelvis was performed with 100 mL Omnipaque-350 intravenous contrast. Automated exposure control and iterative reconstruction technique were employed. The dose-length product was 249.93 mGy-cm. COMPARISON: 02/28/2022. FINDINGS: Lower thorax: Unremarkable Liver: Normal.? Biliary/Gallbladder: Gallbladder is normal. No bile duct dilation. Pancreas: No mass or duct dilation. Spleen: Normal. Adrenals:No mass. Kidneys: No suspicious mass, obstructing stone, or hydronephrosis. GI tract: The descending colon and rectum are markedly dilated by formed stool, measuring up to 13 cm. There is associated wall thickening and mild pericolonic inflammatory change. No small bowel dilation. Normal appendix. Mesentery/Peritoneum: No ascites, mass, or free air. Retroperitoneum: No mass. Pelvis: Pelvic organs are within normal limits. Rightward displacement of the urinary bladder by the distended colon and rectum. Soft Tissues: Soft tissues and body wall unremarkable. Bones:? No acute osseous finding. IMPRESSION: Severe fecal impaction and massive volume of colonic stool, with findings concerning for early stercoral colitis. EXAMINATION: XR abdomen/kub 1V DATE: 05/02/2023 18:15 INDICATION: Constipation. TECHNIQUE: A supine view of the abdomen on 2 radiographs was obtained. COMPARISON: CT abdomen and pelvis 04/14/2023 FINDINGS: There is a large stool ball in the rectosigmoid with distention of the rectosigmoid. The small bowel is normal in caliber. A catheter overlies the bladder. IMPRESSION: 1. Large stool ball in the rectosigmoid with distention of the rectosigmoid. Review of Systems Review of Systems: Urinary retention, constipation Constitutional: Constitutional: Denies chills, Denies fatigue, Denies fever(s), Denies malaise, Denies night sweats and Denies poor appetite Eyes: Eyes: Denies change in vision ENT: Denies dysphagia and Denies odynophagia Cardiovascular: Cardiovascular: Denies chest pain, Denies radiating jaw, neck or arm pain and Denies palpitations Respiratory: Respiratory: Denies cough, Denies excessive phlegm production and Denies dyspnea Gastrointestinal: Gastrointestinal: Reports constipation, Denies dyspepsia, Denies heartburn, Denies nausea and Denies vomiting Genitourinary: Genitourinary: Reports other (Urinary retention) Musculoskeletal: Musculoskeletal: Reports back pain Integumentary/Breasts: Skin/Breast: Denies rash Neurologic: Denies focal weakness and Denies Sensory deficit (Neuro) Psychiatric: Psychiatric: Reports no additional psychiatric complaints and Reports as per HPI Endocrine: Endocrine: Denies cold intolerance, Denies fatigue, Denies flushing, Denies heat intolerance, Denies polyphagia, Denies polydipsia and Denies palpitations Hematologic/Lymphatic: Hematologic/Lymphatic: Reports no additional hematologic/lymphatic complaints and Reports as per HPI Allergic/Immunologic: Allergic/Immunologic: Reports no additional allergic/immunologic complaints and Reports as per HPI PMFSH Past Medical History Medical History Constipation Fecal impaction in rectum Urinary retention Surgical History Surgical History No history of previous surgery Family History Family History (Reviewed 05/02
[2023-05-02 21:37] VITALS: BP 134/83; PULSE 83; RESP 16; TEMP 36.6; O2SAT 99
[2023-05-02 21:39] VITALS: BMI 19.8
[2023-05-02] MEDS: KETOROLAC 30 MG/ML VIAL (*BKC) IV PUSH (21:44)
[2023-05-02 22:23] VITALS: PULSE 78; RESP 16; O2SAT 99
[2023-05-02 23:00] VITALS: BMI 19.8
--- NOTE | 2023-05-02 23:23 | PC.NURSE ---
Pt is A&O x4, able to make needs known. Pt is here with fecal impaction and urinary retention, knapp catheter placed in ED. Pt c/o moderate pain, this RN administered Toradol, pain relief reported per pt. Pt was educated about hospital environment, safety precautions, call light use, medications, knapp catheter, pain management, etc. Pt is on CL diet, tolerates well, denies n/v. Pt denies SOB. Vital signs stable, WNL. Pt had a BM once admitted, brown liquid w/small hard pebbled present, pt denies blood in the stool. Pt denies any further questions/needs. Will continue to monitor.
[2023-05-02 23:29] VITALS: BMI 19.8
[2023-05-03] MEDS: KETOROLAC 30 MG/ML VIAL (*BKC) IV PUSH (04:15)
[2023-05-03 05:04] VITALS: BP 122/66; PULSE 86; RESP 16; TEMP 36.6; O2SAT 98
[2023-05-03] MEDS: DOCUSATE SODIUM 100 MG CAPSULE PO ×2 (08:07→20:54)
[2023-05-03] MEDS: polyethylene glycoL 3350 17 GM POWD.PACK PO (08:07)
[2023-05-03] MEDS: methocarbamoL 750 MG TABLET 1500 MG PO ×2 (08:07→18:36)
[2023-05-03] MEDS: MAGNESIUM CITRATE 300 ML BTL PO (08:09)
--- NOTE | 2023-05-03 09:01 | PC.NURSE ---
Pt had calling me in his room demanding that the knapp cather be removed. Educated pt on benefits of having it in but still wanted it removed. Got an order from provider to remove it. Removed catheter, and provided education on what will happen if pt doesn't urinate in 6 hours. Pt agreed to interventions. Pt also refused enema at this time, will try again later.
--- NOTE | 2023-05-03 09:26 | WPDGICN ---
Assessment and Plan Assessment and plan (1) Fecal impaction in rectum: Code(s): K56.41 - Fecal impaction Status: Acute Assessment and Plan: Patient with fecal impaction evident by exam with fecal stool ball palpable in suprapubic area also noticed on CT scan imaging. Plan for MiraLax daily. Will give mineral oil enemas. If this fails to alleviate impaction that he may need soapsuds enemas. Elective colonoscopy after cleansing will be considered to ensure normal mucosa throughout the colon. this will be accomplished at a later date. (2) Constipation: Code(s): K59.00 - Constipation, unspecified Status: Acute Assessment and Plan: Long-term routine use of laxatives or encouraged at this stage. After removal of impaction. (3) Urinary retention: Code(s): R33.9 - Retention of urine, unspecified Status: Acute Assessment and Plan: Urinary retention appears be on the basis of fecal impaction. A Sullivan catheter was placed. If this remains long-term the neurological evaluation may be necessary. GI Consult Note Consult date/time: 05/03/23 09:26 Reason for consult: Fecal impaction. HPI: Jabier Sharma is a 17 year old male I am consulted at the request of the hospitalist service because of a fecal impaction. Patient has a history of constipation for long-term. Previously on MiraLax. He apparently discontinued this. Patient recently hospitalized with fecal impaction. He had good results with laxatives and enemas however upon discharge apparently still had residual stool. He developed urinary retention for this reason went to the emergency room where if Sullivan catheter was placed. Patient is found to have residual fecal impaction on imaging studies. For this reason he was admitted the hospital. Patient has had no recent cleansing ends and enemas. He has taken MiraLax since his discharge on a daily basis. Review of Systems Review of Systems: Review of systems noncontributory. FOR[facility]LY [facility], [facility] Past Medical History Medical History Constipation Fecal impaction in rectum Urinary retention Surgical History Surgical History No history of previous surgery Family History Family History Sibling Bipolar 1 disorder Social History Social History Social History: He is single lives with parents and works at [employer]. he vapes daily and uses marijuana. Smoking status: Current every day smoker Second hand tobacco smoke exposure: No Alcohol intake: never Substance use: current Substance use type: marijuana Other substance usage details: weekly Lack of Transportation: No Lack of Food: Never True Current Housing: I Have Housing Concerned About Future Housing: No Difficulty Paying Gas/Electric Bills: No Difficulty Paying for Meds: No Currently Unemployed: No Education: High School Diploma/GED Difficulty w/ Childcare or Family Care: No Spiritual care concerns: No Meds Home Medications and Allergies Home Medications Medication Instructions Recorded Confirmed Type bisacodyl 5 mg tablet,delayed 5 mg PO PRN #30 tabs 04/17/23 05/02/23 Rx release (Laxative (bisacodyl)) docusate sodium 100 mg capsule 100 mg PO Q12HR #30 caps 04/17/23 05/02/23 Rx polyethylene glycol 3350 17 gram 17 g PO QAM #30 ea 04/17/23 05/02/23 Rx oral powder packet (Miralax) magnesium citrate 296 ml PO ONCE PRN constipation 05/02/23 05/02/23 History methocarbamol 750 mg tablet 1,500 mg PO TID #30 tabs 05/02/23 05/02/23 Rx Allergies Allergy/AdvReac Type Severity Reaction Status Date / Time No Known Allergies Allergy Verified 05/02/23 17:25 Vital Signs Vital Signs - 24 hr 05/02/23 16:48 05/02/23 19:56 05/02/23 21:37 Tempera
--- NOTE | 2023-05-03 11:30 | PM.IMPN ---
Progress Note: A&P Assessment and Plan (1) Fecal impaction in rectum: Code(s): K56.41 - Fecal impaction Status: Acute Assessment and Plan: Patient refusing enema at this time, but reports he will consent to administration of anxiety medication before enema if not improving by tomorrow. (2) Urinary retention: Code(s): R33.9 - Retention of urine, unspecified Status: Acute Assessment and Plan: Patient demanded removal of Sullivan 05/03 morning. He stated it hurt him and he could not try to pass a bowel movement while it was still in place. RN notified to replace catheter if patient continues to retain urine over 300 mL or straight cath if patient refuses Sullivan placement again. (3) Back pain: Code(s): M54.9 - Dorsalgia, unspecified Status: Acute Assessment and Plan: Tylenol p.r.n. Plan No procedure planned by GI on this admission Patient refusing enemas as ordered at this time Will attempt Go-lytely Ativan before enema tomorrow if still needed, patient reports he will agree with this if not improved overnight Time Spent With Patient Time with patient: 25 - 35 minutes Subjective Date/time seen: 05/03/23 10:00 Interval history: This is a 17-year-old male patient with chronic constipation who was recently in the hospital due to severe constipation. He was discharged after refusing to drink mag citrate or do enemas. Patient was to follow up with GI and reports a scheduled outpatient therapeutic colonoscopy in a week. Patient returned to ER yesterday with urinary retention, received straight cath and was discharged. He returned with another episode of urinary retention. Sullivan catheter placed and patient admitted to Hospitalist Service with GI consult in the morning. Patient had findings of large rectosigmoid stool ball fecal impaction that was palpable and radiographically reported. GI saw patient and recommends Miralax, mag citrate and mineral oil enemas. Patient still refusing enemas. He reports partial relief from BM in the shower this morning. He is in less pain at this time. I offered anxiety medication before enemas and he wanted to wait until tomorrow to see if he improves without enema at this time but he agreed to this plan of care for tomorrow. Review of Systems Review of Systems: All systems reviewed & are unremarkable except as noted in HPI and below Exam Narrative: GENERAL: Generally well appearing, alert and oriented, in no apparent distress. HEENT: Pupils are equally round and briskly reactive to light. Extraocular muscles are intact. Oral mucous membranes are moist without lesions. NECK: The patient has no noted JVD. No adenopathy is appreciated. CHEST/LUNGS: Lungs are clear bilaterally without rhonchi, rales, or wheezes. There is no subcutaneous air appreciated. There is no tenderness to the chest wall. HEART: The patient has a regular rate and rhythm. No murmurs, rubs, or gallops are appreciated. Distal pulses are 2+. ABDOMEN: The patient?s abdomen is soft, nontender, and nondistended with some palpable suprapubic density, less apparent than previously documented. Bowel sounds are hyperactive upper quadrants. There are no peritoneal signs. There is no Ferris?s sign. EXTREMITIES: The patient has no peripheral edema. There is no focal long bone tenderness or deformity. SKIN: The patient?s skin is warm and dry, without rashes or lesions. PSYCHIATRIC: The patient has normal mental status and has an appropriate affect. NEUROLOGIC: There are no gross deficits to the cranial nerves. Patient ambulates with steady gait. Objective Data Vital Signs Vital Signs: Vital Signs - 24 hr 05/02/23 16:48 05/02/23 19:56 05/02/23 21:37 Temperature 36.6 C 36.6 C Pulse Rate 100 99 83 Respiratory Rate 16 17 16 Blood Pressure 136/86 134/87 134/83 Pulse Oximetry 100 100 99 Oxygen Delivery Room Air 05/02/23 22:23 05/03/23 05:04 05/03/23 08:00 Temperature 36.6
--- NOTE | 2023-05-03 13:47 | PC.NURSE ---
On 05/03/23, the student, [Antoine Prado], provided care and completed [facility] documentation on this patient. I have reviewed the student's documentation and agree with the findings.
[2023-05-03] MEDS: PEG (High)/E-LYTE SOLN 4,000 ML BTL 4000 ML PO (14:28)
[2023-05-03 14:50] VITALS: BP 116/69; PULSE 86; RESP 16; TEMP 36.3; O2SAT 99
[2023-05-03 20:32] VITALS: BP 130/69; PULSE 90; RESP 18; TEMP 36.4; O2SAT 100
[2023-05-04] MEDS: KETOROLAC 30 MG/ML VIAL (*BKC) IV PUSH (04:22)
[2023-05-04 05:52] LABS: Basophils Percent Auto 0.4 % (0.2-1.2); Eosinophils Absolute Auto 0.1 K/mm3 (0-0.3); Eosinophils Percent Auto 1.3 % (0-4.4); Hematocrit 39.6 % (42.0-52.0); Hemoglobin 13.4 g/dL (14.0-18.0); Immature Granulocyte Absolute 0.03 K/mm3 (0.00-0.031); Immature Granulocyte Percent A 0.3 % (0-0.5); Lymphocytes Absolute Auto 1.52 K/mm3 (0.9-3.2); Lymphocytes Percent Auto 14.2 % (18.3-44.2); Mean Corpuscular HGB Conc 33.8 g/dl (32-36); Mean Corpuscular Hemoglobin 30.3 pg (26-34); Mean Corpuscular Volume 89.6 fl (80-100); Mean Platelet Volume 9.6 fl (7.4-10.4); Monocytes Absolute Auto 0.9 K/mm3 (0.1-0.6); Monocytes Percent Auto 7.9 % (2.6-8.5); Neutrophils Absolute Auto 8.1 K/mm3 (1.3-6.7); Neutrophils Percent Auto 75.9 % (45.5-73.1); Platelet Count Result 312 k/mm3 (150-375); Red Blood Count 4.42 M/mm3 (4.6-6.20); Red Cell Distribution Width 11.6 % (11.5-14.5); White Blood Count 10.7 K/mm3 (4.5-10.0)
[2023-05-04 05:57] LABS: Alanine Aminotransferase 14 U/L (6-50); Albumin Level 4.4 g/dL (3.7-5.6); Alkaline Phosphatase 81 U/L (58-237); Anion Gap 15 mmol/L (8-16); Aspartate Amino Transferase 22 U/L (17-59); Bilirubin,Total 0.9 mg/dL (0.2-1.3); Blood Urea Nitrogen 12 mg/dL (8-21); Calcium 9.3 mg/dL (8.9-10.7); Carbon Dioxide 25 mmol/L (22-30); Chloride 98 mmol/L (98-107); Estimated CRCL calculation 115 ml/min; Estimated Glomerular Filt Rate > 60; Glucose 83 mg/dL (65-110); Potassium 4.1 mmol/L (3.4-5.0); Sodium 138 mmol/L (134-143)
[2023-05-04 06:55] VITALS: BP 105/60; PULSE 72; RESP 14; TEMP 36.4; O2SAT 98
--- NOTE | 2023-05-04 07:21 | WPDGIPROGNO ---
Progress Note: A&P Assessment and Plan (1) Fecal impaction in rectum: Code(s): K56.41 - Fecal impaction Status: Acute Assessment and Plan: he is taking GoLYTELY. Will also order Dulcolax tablets. He feels that he is having some resolution already (2) Urinary retention: Code(s): R33.9 - Retention of urine, unspecified Status: Acute Assessment and Plan: he had urinary retention relieved with temporary Sullivan admission (3) Constipation: Code(s): K59.00 - Constipation, unspecified Status: Acute Assessment and Plan: he has chronic issues with constipation. I discussed this with him and he acknowledges he needs to stay on something like MiraLax. He had been using that at home but stopped it. The plan is for him of entry to have a colonoscopy by Dr. Bhagat. Subjective Date/time seen: 05/04/23 07:21 He is drinking GoLYTELY. He thinks he has had his some relief already of his impaction because back pain and suprapubic pain has resolved. The stool he is passing is mostly liquid. He recognizes that he will need to stay on something like MiraLax after discharge. Exam Const: General: cooperative and healthy appearing Nutritional Appearance: thin Orientation/consciousness: patient oriented x3 HENMT: Head: normal to inspection Ears: hearing grossly normal bilaterally Mouth: Yes Normal oral and palatal mucosa present Eyes: General: appearance normal, both eyes and all related structures Neck: Neck: normal visual inspection Chest: Chest palpation & inspection: normal inspection of the chest Resp: Effort & Inspection: normal respiratory effort Auscultation: clear to auscultation bilaterally Cardio: Rate: regular rate Rhythm: regular rhythm GI: Inspection: normal to inspection GI Palp: Yes No hepatosplenomegaly present Auscultation: normal bowel sounds Skin: General skin exam: normal color and no jaundice Neuro: General: patient oriented x3 Speech: normal speech Objective Data Vital Signs Vital Signs: Vital Signs - 24 hr 05/03/23 08:00 05/03/23 14:50 05/03/23 20:32 Temperature 36.3 C L 36.4 C L Pulse Rate 86 90 Respiratory Rate 16 18 Blood Pressure 116/69 130/69 Pulse Oximetry 99 100 Oxygen Delivery Room Air 05/04/23 06:55 Temperature 36.4 C Pulse Rate 72 Respiratory Rate 14 Blood Pressure 105/60 Pulse Oximetry 98 Oxygen Delivery Intake/Output Intake/Output: Intake & Output 05/01/23 05/02/23 05/03/23 05/04/23 23:59 23:59 23:59 23:59 Intake Total 200 Output Total 500 325 Balance -500 -325 200 Meds/Results Medications: Active Medications Generic Name Dose Route Start Last Admin Trade Name Freq PRN Reason Stop Dose Admin Acetaminophen 650 mg 05/02/23 20:14 Acetaminophen 325 Mg Tablet PO Q4H PRN Mild Pain (1-3) or Fever Bisacodyl 20 mg 05/04/23 09:00 Bisacodyl 5 Mg Tablet Ec PO QAM KERRIE Docusate Sodium 100 mg 05/03/23 09:00 05/03/23 20:54 Docusate Sodium 100 Mg Capsule PO 100 mg Q12HR KERRIE Administration Ketorolac Tromethamine 30 mg 05/02/23 20:14 05/04/23 04:22 Ketorolac 30 Mg/Ml Vial (*Bk) IV PUSH 05/07/23 20:13 30 mg Q6H PRN Administration Pain Rated 4-6 Magnesium Citrate 296 ml 05/03/23 02:45 Magnesium Citrate 300 Ml Btl PO PRN PRN constipation Methocarbamol 1,500 mg 05/03/23 09:00 05/03/23 18:36 Methocarbamol 750 Mg Tablet PO 1,500 mg TID [facility] Administration Polyethylene Glycol 17 gm 05/03/23 09:00 05/03/23 08:07 Polyethylene Glycol 3350 17 Gm Powd.Pack PO 17 gm QAM [facility] Administration Radiology Results: ITS Impressions Abdomen X-Ray 05/02/23 18:16 IMPRESSION: 1. Large stool ball in the rectosigmoid with distention of the rectosigmoid. Labs Labs: Laboratory Results - last 24 hr 05/04/23 05:36 WBC 10.7 H RBC 4.42 L Hgb 13.4 L Hct 39.6 L MCV 89.6 MCH 30.3 MCHC 33.
[2023-05-04] MEDS: BISACODYL 5 MG TABLET EC 20 MG PO (09:14)
[2023-05-04] MEDS: methocarbamoL 750 MG TABLET 1500 MG PO ×3 (09:14→17:37)
[2023-05-04] MEDS: DOCUSATE SODIUM 100 MG CAPSULE PO (09:14)
[2023-05-04] MEDS: polyethylene glycoL 3350 17 GM POWD.PACK PO (09:16)
[2023-05-04] MEDS: ONDANSETRON INJ 4 MG/2 ML VIAL IV PUSH (12:04)
[2023-05-04 14:00] VITALS: BP 117/82; PULSE 90; RESP 16; TEMP 36.4; O2SAT 100
--- NOTE | 2023-05-04 14:14 | PC.NURSE ---
On 05/04/23, the student, [Antoine Prado], provided care and completed [facility] documentation on this patient. I have reviewed the student's documentation and agree with the findings.
[2023-05-04] MEDS: LORazepam INJ (*CRX) 2 MG/ML VIAL 1 MG IV PUSH (15:40)
--- NOTE | 2023-05-04 17:02 | PM.DS ---
DS: Admitting Diagnosis Discharge Date 05/04/2023 Admitting Diagnosis Fecal impaction in rectum, urinary retention, back pain DS: Discharge Diagnosis Discharge Diagnosis (1) Fecal impaction in rectum: Code(s): K56.41 - Fecal impaction Status: Acute (2) Urinary retention: Code(s): R33.9 - Retention of urine, unspecified Status: Acute (3) Back pain: Code(s): M54.9 - Dorsalgia, unspecified Status: Acute (4) Constipation: Code(s): K59.00 - Constipation, unspecified Status: Chronic DS: Summary Hospital Course Reason for hospitalization: Patient admitted due to urinary retention associated with fecal impaction Hospital Course: 05/03: This is a 17-year-old male patient with chronic constipation who was recently in the hospital due to severe constipation.? He was discharged after refusing to drink mag citrate or do enemas.? Patient was to follow up with GI and reports a scheduled outpatient therapeutic colonoscopy in a week.? Patient returned to ER yesterday with urinary retention, received straight cath and was discharged.? He returned with another episode of urinary retention.? Sullivan catheter placed and patient admitted to Hospitalist Service with GI consult in the morning.? Patient had findings of large rectosigmoid stool ball fecal impaction that was palpable and radiographically reported.? GI saw patient and recommends Miralax, mag citrate and mineral oil enemas.? Patient still refusing enemas.? He reports partial relief from BM in the shower this morning.? He is in less pain at this time.? I offered anxiety medication before enemas and he wanted to wait until tomorrow to see if he improves without enema at this time but he agreed to this plan of care for tomorrow. 05/04: Patient drink about half gal of GoLYTELY and is having mostly liquid stools. His pain is relieved. His urinary retention is relieved. Patient did consent to enema after discussion process. He received dose of Ativan prior to enema. I personally completed the process of enema with mineral oil, warm water and cast deal soap. Patient retained about 500 mL of enema mixture and was able to pass more solid stool. Patient not agreeable to digital disimpaction attempt. Patient still feels well and is requesting discharge home. Status at Discharge Cognitive/behavioral status at discharge: Awake alert oriented and pleasant Functional status at discharge: independent ambulation Overall status at discharge: patient is progressing back to baseline Time Spent with Patient Time attestation: Total time spent providing and/or coordinating discharge services: 40 minutes including personally administering enema concoction Time spent: Greater than 30 minutes Exam Narrative: GENERAL: Generally well appearing, alert and oriented, in no apparent distress. HEENT: Pupils are equally round and briskly reactive to light. Extraocular muscles are intact. Oral mucous membranes are moist without lesions. NECK: The patient has no noted JVD. No adenopathy is appreciated. CHEST/LUNGS: Lungs are clear bilaterally without rhonchi, rales, or wheezes. There is no subcutaneous air appreciated. There is no tenderness to the chest wall. HEART: The patient has a regular rate and rhythm. No murmurs, rubs, or gallops are appreciated. Distal pulses are 2+. ABDOMEN: The patient?s abdomen is soft, nontender, and nondistended with some palpable suprapubic density, less apparent than previously documented. Bowel sounds are hyperactive upper quadrants. There are no peritoneal signs. There is no Ferris?s sign. EXTREMITIES: The patient has no peripheral edema. There is no focal long bone tenderness or deformity. SKIN: The patient?s skin is warm and dry, without rashes or lesions. PSYCHIATRIC: The patient has normal mental status and has an appropriate affect. NEUROLOGIC: There are no gross deficits to the cranial nerves. Patient ambulates with steady gait.
== END 2023-05-04 19:00 | disposition home or self-care (01) ==
LOC: ANHED 20:18 → ANH2MED 05-03 10:07
PROVIDERS: Nurse Practitioner; Admitting Provider Internal Medicine; Emergency Provider Physician Assistant; PCP Pediatrics; Visit Provider Hospitalist
DX: K56.41 Fecal impaction (principal); R33.9 Retention of urine, unspecified; M54.9 Dorsalgia, unspecified; Z96.0 Presence of urogenital implants; F17.290 Nicotine dependence, other tobacco product, uncomplicated; F12.90 Cannabis use, unspecified, uncomplicated; Z79.899 Other long term (current) drug therapy
CPT/HCPCS: 36415; 74018; 80053; 81003; 85025; 85610; 85730; 96372; 96374; 96375; 99283; A9270; G0378; J1170; J1885; J2060; J2405

== ENCOUNTER 2023-06-06 07:20 | Emergency (ER) | payer OTHER, SELFPAY ==
[2023-06-06 07:30] VITALS: BP 129/91; PULSE 100; RESP 20; TEMP 36.6; O2SAT 100
--- NOTE | 2023-06-06 08:24 | ED.GENADULT ---
HPI - General Adult General Chief complaint: Abdominal Pain Stated complaint: FECAL IMPACTION WANTS HIS BLADDER DRAINED Time Seen by Provider: 06/06/23 08:09 History of Present Illness HPI narrative: patient is a 17-year-old male who presents ER with urinary retention. Reports he has not urinated since yesterday evening and is now having suprapubic pain and discomfort. Patient has history of chronic constipation and intermittent fecal impaction. When he is impacted he retains urine. He feels like he is impacting currently. He reports he is taking MiraLax and Dulcolax regularly. He last had a bowel movement yesterday. He reports he does not want to be evaluated for his constipation or possible impaction while in the ER. Pain abdomen is sharp and cramping without radiation. Related Data Home Medications Medication Instructions Recorded Confirmed magnesium citrate 296 ml PO ONCE PRN constipation 05/02/23 05/02/23 Allergies Allergy/AdvReac Type Severity Reaction Status Date / Time No Known Allergies Allergy Verified 06/06/23 08:10 Review of Systems Constitutional: Constitutional: Reports no additional constitutional complaints Gastrointestinal: Gastrointestinal: Reports abdominal pain, Reports constipation, Denies diarrhea, Denies nausea and Denies vomiting Genitourinary: Genitourinary: Denies hematuria, Reports oliguria, Denies dysuria and Denies urinary frequency [facility] Past Medical History Medical History Constipation Fecal impaction in rectum Urinary retention Surgical History Surgical History No history of previous surgery Family History Family History Sibling Bipolar 1 disorder Social History Social History Social History: He is single lives with parents and works at [employer]. he vapes daily and uses marijuana. Smoking status: Current every day smoker Second hand tobacco smoke exposure: No Alcohol intake: never Substance use: current Substance use type: marijuana Other substance usage details: weekly Lack of Transportation: No Lack of Food: Never True Current Housing: I Have Housing Concerned About Future Housing: No Difficulty Paying Gas/Electric Bills: No Difficulty Paying for Meds: No Currently Unemployed: No Education: High School Diploma/GED Difficulty w/ Childcare or Family Care: No Spiritual care concerns: No Exam Narrative: GENERAL: Well-appearing, well-nourished, and in no acute distress. HEAD: Normocephalic, atraumatic. CHEST: Clear to auscultation. No respiratory distress. HEART: Regular rate and rhythm. Normal peripheral pulses. ABDOMEN: Soft, tender palpation suprapubic region, nondistended, normal active bowel sounds. EXTREMITIES: Normal range of motion. No edema. SKIN: Warm, dry, no rash. NEURO: Alert and oriented x3. PSYCH: Normal mood and affect. Course Course Emergency Course: Patient has had 1600 mL of urine removed from his bladder. He is refusing Sullivan catheter placement leg bag. He wants to try to deal with his constipation on his own at home and wants no assistance from us. He is aware he may have difficulty urinating again and he will come back to the ER if that happens. Vital Signs Vital signs: Vital Signs Temperature 97.8 F 06/06/23 07:30 Pulse Rate 100 06/06/23 07:30 Respiratory Rate 20 06/06/23 07:30 Blood Pressure 129/91 H 06/06/23 07:30 Pulse Oximetry 100 06/06/23 07:30 Temperature 97.8 F 06/06/23 07:30 Pulse Rate 100 06/06/23 07:30 Respiratory Rate 20 06/06/23 07:30 Blood Pressure 129/91 H 06/06/23 07:30 Pulse Oximetry 100 06/06/23 07:30 Medical Decision Making Vital Signs Vital Signs: Vital Signs Temperatur
[2023-06-06 10:11] VITALS: BP 122/83; PULSE 78; RESP 17; O2SAT 100
== END 2023-06-06 10:13 | disposition home or self-care (01) ==
PROVIDERS: Emergency Provider Emergency Medicine; PCP Pediatrics
DX: R33.9 Retention of urine, unspecified (principal); F17.290 Nicotine dependence, other tobacco product, uncomplicated
CPT/HCPCS: 99282

== ENCOUNTER 2023-06-10 15:56 | Emergency (ER) | payer OTHER, SELFPAY ==
--- NOTE | ~2023-06-10 | CT_ITS ---
EXAMINATION: CT abdomen pelvis w con DATE: 06/10/2023 18:23 INDICATION: constipation TECHNIQUE: Computed tomography (CT) of the abdomen and pelvis was performed with 100 mL Omnipaque-350 intravenous contrast. Automated exposure control and iterative reconstruction technique were employe d. The dose-length product was 230.70 mGy-cm. COMPARISON: 04/14/2023. FINDINGS: Lower thorax: Unremarkable Liver: Normal. Biliary/Gallbladder: Gallbladder is normal. No bile duct dilation. Pancreas: No mass or duct dilation. Spleen: Normal. Adrenals:No mass. Kidneys: No suspicious mass, obstructing stone, or hydronephrosis. GI tract: Severe dilation of the descending colon, sigmoid colon and rectum by a large volume of feca l material. The rectum is dilated up to 10.9 cm, with significant and increased surrounding wall thic kening and inflammation. The distal descending colon is dilated up to 13.4 cm. The degree of distenti on is similar to the prior study. The conglomerate mass of feces extends from the anus to the splenic flexure. Surprisingly, there is no proximal colon or small bowel dilation. No small dilation. Normal appendix. Mesentery/Peritoneum: No ascites, mass, or free air. Retroperitoneum: No mass. Pelvis: The urinary bladder is decompressed by a Sullivan catheter. Soft Tissues: Soft tissues and body wall unremarkable. Bones: No acute osseous finding. 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 Reviewed, dictated and finalized at location [facility]
[2023-06-10 15:57] VITALS: BP 110/75; PULSE 104; RESP 16; TEMP 36.3; O2SAT 100
[2023-06-10 17:33] LABS: Basophils Absolute Auto 0.1 K/mm3 (0.0-0.1); Basophils Percent Auto 0.7 % (0.2-1.2); Eosinophils Absolute Auto 0.2 K/mm3 (0-0.3); Eosinophils Percent Auto 1.6 % (0-4.4); Hematocrit 37.9 % (42.0-52.0); Hemoglobin 12.1 g/dL (14.0-18.0); Immature Granulocyte Absolute 0.03 K/mm3 (0.00-0.031); Immature Granulocyte Percent A 0.3 % (0-0.5); Lymphocytes Absolute Auto 1.15 K/mm3 (0.9-3.2); Lymphocytes Percent Auto 11.4 % (18.3-44.2); Mean Corpuscular HGB Conc 31.9 g/dl (32-36); Mean Corpuscular Hemoglobin 29.1 pg (26-34); Mean Corpuscular Volume 91.1 fl (80-100); Monocytes Absolute Auto 0.8 K/mm3 (0.1-0.6); Monocytes Percent Auto 8.1 % (2.6-8.5); Neutrophils Absolute Auto 7.8 K/mm3 (1.3-6.7); Neutrophils Percent Auto 77.9 % (45.5-73.1); Platelet Count Result 408 k/mm3 (150-375); Red Blood Count 4.16 M/mm3 (4.6-6.20); White Blood Count 10.1 K/mm3 (4.5-10.0)
[2023-06-10 17:44] LABS: Alanine Aminotransferase 13 U/L (6-50); Albumin Level 4.4 g/dL (3.7-5.6); Alkaline Phosphatase 95 U/L (58-237); Anion Gap 9 mmol/L (8-16); Aspartate Amino Transferase 18 U/L (17-59); Bilirubin,Total 0.5 mg/dL (0.2-1.3); Blood Urea Nitrogen 13 mg/dL (8-21); Calcium 9.5 mg/dL (8.9-10.7); Carbon Dioxide 27 mmol/L (22-30); Chloride 107 mmol/L (98-107); Estimated CRCL calculation 117 ml/min; Estimated Glomerular Filt Rate > 60; Glucose 101 mg/dL (65-110); Sodium 143 mmol/L (134-143)
[2023-06-10 17:50] VITALS: BP 116/72; PULSE 64; RESP 17; TEMP 36.6; O2SAT 100
[2023-06-10 18:39] LABS: Appearance Urine Turbid (Clear); Bacteria Urine None Seen /hpf; Bilirubin Urine Negative (Negative); Blood Urine Negative (Negative); Color Urine Yellow (Yellow); Glucose Urine UA Negative (Negative); Ketones Urine Negative (Negative); Leukocyte Esterase Ur Negative LEU/UL (Negative); Nitrate Urine Negative (Negative); Non Pathogenic Casts 0-2; Protein Urine Trace mg/dL (Negative); RBC Urine 0-2 /hpf (0-2); Specific Grav Ur 1.019 (1.001-1.035); Squamous Epithelial Cell Urine None seen /hpf (Few); WBC Urine 0-5 /hpf; pH Urine >=9.0 (5.0-9.0)
[2023-06-10 18:47] LABS: Add Urine Microscopic? YES
[2023-06-10] MEDS: KETOROLAC 15 MG/ML VIAL (*BKC) IV PUSH (18:50)
--- NOTE | 2023-06-10 19:06 | ED.GENADULT ---
HPI - General Adult General Chief complaint: Urogenital-Male Stated complaint: fecal impaction/wants bladder drained Time Seen by Provider: 06/10/23 16:09 History of Present Illness HPI narrative: 17-year-old male present to the emergency department for evaluation of urinary retention. Patient has had longstanding issues with urinary retention and constipation. Patient has recently been following up with GI and has been trying laxatives and enemas to help pass stool with no improvement. Patient states he has had increased urinary tension over the last few days. Patient has previously required a Sullivan catheter. Related Data Home Medications Medication Instructions Recorded Confirmed magnesium citrate 296 ml PO ONCE PRN constipation 05/02/23 05/02/23 Allergies Allergy/AdvReac Type Severity Reaction Status Date / Time No Known Allergies Allergy Verified 06/06/23 08:10 Review of Systems Review of Systems: All systems reviewed & are unremarkable except as noted in HPI and below PMFSH Past Medical History Medical History Constipation Fecal impaction in rectum Urinary retention Surgical History Surgical History No history of previous surgery Family History Family History Sibling Bipolar 1 disorder Social History Social History Social History: He is single lives with parents and works at [employer]. he vapes daily and uses marijuana. Smoking status: Current every day smoker Second hand tobacco smoke exposure: No Alcohol intake: never Substance use: current Substance use type: marijuana Other substance usage details: weekly Lack of Transportation: No Lack of Food: Never True Current Housing: I Have Housing Concerned About Future Housing: No Difficulty Paying Gas/Electric Bills: No Difficulty Paying for Meds: No Currently Unemployed: No Education: High School Diploma/GED Difficulty w/ Childcare or Family Care: No Spiritual care concerns: No Exam Narrative: APPEARANCE: Well appearing, no pain, no distress, well-nourished. HEAD: normocephalic, atraumatic. EYES: PERRLA/EOMI, conjunctivae clear. NOSE: Normal no drainage EARS:TMS clear with good light reflex. THROAT: Pharynx clear, no exudate. NECK: Supple. No adenopathy, no masses. RESPIRATORY: Airway patent, respirations nonlabored. Clear to auscultation bilaterally, no rales, rhonchi, wheezing. CARDIOVASCULAR: Regular rate and rhythm without murmurs rubs or gallops. ABDOMINAL: Soft, nontender, nondistended, normal bowel sounds MUSCULOSKELETAL: Moves all extremities. Strength/ROM intact, No edema, No calf tenderness. NEURO: Alert. Cranial nerves II through XII intact. Grossly intact Course Course Emergency Course: 17-year-old male presenting to the emergency department for evaluation of urinary retention. Patient did have greater than 200 mL of retained urine. Sullivan catheter was placed as written patient is now draining urine without issue. Patient is afebrile with no leukocytosis and a stable hemoglobin. UA shows no evidence of infection. CT scan was repeated and does show that the patient still has significant constipation. Patient has been following up with GI but is having no success. Patient was offered admission but patient did decline. Patient will be provided information for surgery and for Urology for follow-up. Patient was also encouraged to return to the emergency department to continue his medical treatment. Vital Signs Vital signs: Vital Signs Temperature 97.3 F L 06/10/23 15:57 Pulse Rate 104 H 06/10/23 15:57 Respiratory Rate 16 06/10/23 15:57 Blood Pressure 110/75 06/10/23 15:57 Pulse Oximetry 100 06/10/23 15:57 Oxygen Delivery Room Air
--- NOTE | 2023-06-10 19:07 | PC.NURSE ---
care and report given to CLAIR Estrada. all questions answered.
== END 2023-06-10 19:38 | disposition home or self-care (01) ==
PROVIDERS: Emergency Provider Emergency Medicine; PCP Pediatrics
DX: R33.9 Retention of urine, unspecified (principal); K59.00 Constipation, unspecified; F17.290 Nicotine dependence, other tobacco product, uncomplicated
CPT/HCPCS: 36415; 74177; 80053; 81001; 85025; 96374; 99284; J1885; Q9967

== ENCOUNTER 2023-10-05 12:19 | Emergency (ER) | payer OTHER, SELFPAY ==
[2023-10-05 12:40] VITALS: BP 126/84; PULSE 94; RESP 18; TEMP 37.1; O2SAT 98
--- NOTE | 2023-10-05 13:29 | ED.GENADULT ---
HPI - General Adult General Chief complaint: Upper Respiratory Infection Stated complaint: Sore Throat Time Seen by Provider: 10/05/23 12:45 Source: patient Mode of arrival: ambulatory Limitations: no limitations History of Present Illness HPI narrative: 18 yo M presents with c/o sore throat for 2 days but is now resolved. voice today is horase. No other complaints. States is girlfriend is carrier for strep so just wanted to check for strep. All systems reviewed and negative except as noted above. Related Data Home Medications Medication Instructions Recorded Confirmed No Home Medications 10/05/23 10/05/23 Allergies Allergy/AdvReac Type Severity Reaction Status Date / Time No Known Allergies Allergy Verified 10/05/23 12:21 Review of Systems Review of Systems: CONSTITUTIONAL: Denies fever, chills, or sweats. EYES: Denies visual changes, redness, or discharge. ENT: Denies rhinorrhea, congestion . Reports sore throat. Denies otalgia. CARDIOVASCULAR: Denies chest pain, palpitations, or edema. RESPIRATORY: Denies cough or dyspnea. GASTROINTESTINAL: Denies abdominal pain, nausea, vomiting, or diarrhea. GENITOURINARY: Denies dysuria or hematuria. SKIN: Denies rash or itching. MUSCULOSKELETAL: Denies back pain, joint pain, or myalgia. NEUROLOGIC: Denies headache, numbness, or weakness. PSYCHIATRIC: Denies anxiety or depression. All other systems reviewed are negative, except as documented in HPI. [facility] Past Medical History Medical History Constipation Fecal impaction in rectum Urinary retention Surgical History Surgical History No history of previous surgery Family History Family History Sibling Bipolar 1 disorder Social History Social History Social History: He is single lives with parents and works at [employer]. he vapes daily and uses marijuana. Smoking status: Current every day smoker Second hand tobacco smoke exposure: No Alcohol intake: never Substance use: current Substance use type: marijuana Other substance usage details: weekly Lack of Transportation: No Lack of Food: Never True Current Housing: I Have Housing Concerned About Future Housing: No Difficulty Paying Gas/Electric Bills: No Difficulty Paying for Meds: No Currently Unemployed: No Education: High School Diploma/GED Difficulty w/ Childcare or Family Care: No Spiritual care concerns: No Comments At time of signature, agree with nursing past medical, surgical, social and family history. There is no relevant family history pertinent to the presenting complaint. Exam Narrative: GENERAL: This is a well-nourished, well-developed patient, in no apparent distress. HEAD: normocephalic, atraumatic. EYES: PERRL. Sclera clear/white. Vision is grossly intact. EARS: External ears normal, auditory canals clear and without drainage, TMs normal without perforation. Hearing grossly intact. NOSE: External nose normal with no obvious nasal discharge, nares without redness, no rhinorrhea. THROAT: Mucous membranes moist, posterior pharynx clear. NECK: Neck supple, non-tender without lymphadenopathy, masses or thyromegaly. CARDIOVASCULAR: Regular rate and rhythm without murmurs, gallops, or rubs. RESPIRATORY: Clear to auscultation. Breath sounds equal bilaterally. No wheezes, rales, or rhonchi. SKIN: warm, Dry, intact with no suspicious lesions or rash, good texture and turgor. NEURO: awake, alert, and oriented to person, place and time. There were no obvious focal neurologic abnormalities. EXTREMITIES: No joint tenderness, effusion, or edema noted. Course Course Level of Care: Express Care Visit Vital Signs Vital signs: Vital Signs Temperature 37
== END 2023-10-05 12:55 | disposition home or self-care (01) ==
PROVIDERS: Emergency Provider Nurse Practitioner Family; PCP Pediatrics
DX: J02.9 Acute pharyngitis, unspecified (principal); F17.290 Nicotine dependence, other tobacco product, uncomplicated; F12.90 Cannabis use, unspecified, uncomplicated
CPT/HCPCS: 87081; 87880; 99213; G0463

== ENCOUNTER 2023-11-28 10:34 | Emergency (ER) | payer OTHER, SELFPAY ==
--- NOTE | 2023-11-28 10:39 | ED.NAVMDI ---
HPI - Nausea/Vomiting/Diarrhea General Chief complaint: Nausea/Vomiting/Diarrhea Stated complaint: thorwing up work note Time Seen by Provider: 11/28/23 10:39 Source: patient Mode of arrival: ambulatory Limitations: no limitations History of Present Illness HPI Narrative: Jabier is a 18-year-old male patient presenting to the clinic today with complaints of nausea and vomiting for the past 3 days. He reports he is concerned that it may be something he ate. He reports increase in bowel movements but no diarrhea. States they had a history of a fecal impaction at the beginning of the year and he takes MiraLax every other day to prevent impaction. States he has been having more frequent bowel movements and is passing gas. Denies any abdominal pain. He called off work today and is requesting a work note they told him he would have to be evaluated Related Data Allergies Allergy/AdvReac Type Severity Reaction Status Date / Time No Known Allergies Allergy Verified 10/05/23 12:21 Review of Systems Review of Systems: Pertinent positives per HPI. Patient denies any fever, chills, rash, headache, visual changes, dizziness, cough, runny nose, sore throat, shortness of breath, chest pain, palpitations, diarrhea, constipation, abdominal pain, or any urinary issues. [facility] Past Medical History Medical History Constipation Fecal impaction in rectum Urinary retention Surgical History Surgical History No history of previous surgery Family History Family History Sibling Bipolar 1 disorder Social History Social History Social History: He is single lives with parents and works at [employer]. he vapes daily and uses marijuana. Smoking status: Current every day smoker Second hand tobacco smoke exposure: No Alcohol intake: never Substance use: current Substance use type: marijuana Other substance usage details: weekly Lack of Transportation: No Lack of Food: Never True Current Housing: I Have Housing Concerned About Future Housing: No Difficulty Paying Gas/Electric Bills: No Difficulty Paying for Meds: No Currently Unemployed: No Education: High School Diploma/GED Difficulty w/ Childcare or Family Care: No Spiritual care concerns: No Comments At the time of my signature, I reviewed and agree with the nursing past medical, surgical, social, and family history. There is no relevant family history pertinent to the patient complaint. Exam Narrative: General: Well-developed, well nourished, in no apparent distress. Head: Normocephalic, atraumatic. Cardio: Regular rate and rhythm, s1 and s2 normal, no murmur appreciated. Resp: Clear to auscultation bilaterally, no rhonchi, rales, wheezing or rubs. Abdomen: Soft, pliable, bowel sounds present in all quadrants, non-tender to palpation, no organomegly, no CVAT tenderness. Course Course Emergency Course: Portions of this record may have been created with voice recognition software. Level of Care: Express Care Visit Vital Signs Vital signs: Vital Signs Temperature 36.4 C 11/28/23 10:49 Pulse Rate 74 11/28/23 10:49 Respiratory Rate 14 11/28/23 10:49 Blood Pressure 115/57 L 11/28/23 10:49 Pulse Oximetry 98 11/28/23 10:49 Oxygen Delivery Room Air 11/28/23 10:49 Temperature 36.4 C 11/28/23 10:49 Pulse Rate 74 11/28/23 10:49 Respiratory Rate 14 11/28/23 10:49 Blood Pressure 115/57 L 11/28/23 10:49 Pulse Oximetry 98 11/28/23 10:49 Oxygen Delivery Room Air 11/28/23 10:49 Vital signs reviewed MDM - Nausea/Vomiting/Diarrhea MDM Narrative Medical decision making narrative: At the time of visit patient is resting comfortably on the exam table. Patient appea
[2023-11-28 10:49] VITALS: BP 115/57; PULSE 74; RESP 14; TEMP 36.4; O2SAT 98
== END 2023-11-28 11:06 | disposition home or self-care (01) ==
PROVIDERS: Emergency Provider Nurse Practitioner Family; PCP Pediatrics
DX: K52.9 Noninfective gastroenteritis and colitis, unspecified (principal); F17.200 Nicotine dependence, unspecified, uncomplicated; F12.90 Cannabis use, unspecified, uncomplicated
CPT/HCPCS: 99213; G0463